=== PATIENT | male | born 1995 | race Caucasian/White ===

== ENCOUNTER 2018-07-17 10:28 | Emergency (ER) | payer MEDICAID ==
[~2018-07-17] VITALS: Ht 180.3 cm; Wt 82.0 kg
[2018-07-17] MEDS ORDERED: ONDANSETRON HCL 4MG/2ML INJ IV STA (11:40)
[2018-07-17] MEDS ORDERED: SODIUM CHLORIDE 0.9% 1,000 ML IV ONE (11:40)
[2018-07-17] MEDS ORDERED: MORPHINE SULFATE 4 MG/ML CPJ (NOT FOR IM USE) IV STA (11:40)
[2018-07-17] MEDS ORDERED: ETOMIDATE 2MG/ML 10ML VIAL IV ONE (11:45)
[2018-07-17 12:27] VITALS: BP 136/99
== END 2018-07-17 13:34 | disposition home or self-care (01) ==
LOC: ER 10:28
DX: S43.015A Anterior dislocation of left humerus, initial encounter (principal); F17.200 Nicotine dependence, unspecified, uncomplicated; Y08.09XA Assault by strike by other specified type of sport equipment, initial encounter; Y93.89 Activity, other specified; Y92.89 Other specified places as the place of occurrence of the external cause; Y99.8 Other external cause status
CPT/HCPCS: 73030; 96374; 96375; 99283; J2270; J2405; J3490; J7030; Z7610; L3670